=== PATIENT | male | born 1950 | race Caucasian/White ===

== ENCOUNTER 2017-08-06 07:57 | Emergency (ER) | payer OTHER, MEDICARE ==
[~2017-08-06] VITALS: Ht 190.5 cm; Wt 137.5 kg
[~2017-08-06 07:57] MED LIST: AMARYL4 MG PO; ASPIRIN81 M2 PO; COUMADIN5 MG PO; COZAAR100 MG PO; FLOMAX0.4 MG PO; GLUCOPHAGE1000 MG PO; HYDROCHLOROTHIA25 MG PO; LANTUS 3 M100 UNITS1 SC; LOVENOX120 MG/0.8 SC; NOVOLOG 10100 UNITS/ SC; PERCOCET 5/31 TABLET PO; SIMVASTATIN40 MG PO; VICTOZA 2-0.6 MG/0.1 SC; ZOFRAN ODT4 MG PO; ZOFRAN ODT8 MG PO
[2017-08-06 08:22] LABS: EOSINOPHIL (%) 0.3 % (0-5); EOSINOPHIL COUNT 0.1 K/uL (0-0.3); HEMATOCRIT 40.3 % (38.0-50.0); IMMATURE GRANULOCYTE (%) 0.3 % (0.0-0.7); IMMATURE GRANULOCYTE COUNT 0.1 K/uL; INSTRUMENT ABS NEUTROPHIL CT 12.4 K/uL; LYMPHOCYTE COUNT 2.1 K/uL (1.0-2.8); MCH 28.6 PG (29.0-34.0); MCHC 33.3 G/DL (30.0-36.0); MCV 85.9 FL (86-99); MEAN PLAT.VOLUME 10.5 uM^3 (9.0-12.4); MONOCYTE (%) 4.9 % (3-12); MONOCYTE COUNT 0.8 K/uL (0-0.8); NEUTROPHIL (%) 80.4 % (45-76); NEUTROPHIL COUNT 12.4 K/uL (1.8-6.4); PLATELET COUNT 301 K/uL (156-360); RBC DIS.WIDTH-CV 13.3 % (11.8-14.6); RBC DIS.WIDTH-SD 41.3 % (39-53); RED BLOOD COUNT 4.69 M/uL (4.00-5.50); WHITE BLOOD COUNT 15.5 K/uL (4.1-10.2)
[2017-08-06 08:32] LABS: CHLORIDE 103 mEq/L (99-109); POTASSIUM 5.1 mEq/L (3.7-5.4); SODIUM 135 mEq/L (136-147)
[2017-08-06 08:34] LABS: GLUCOSE 343 mg/dL (70-99)
[2017-08-06 08:35] LABS: ANION GAP 13 MEQ/L (2-14)
[2017-08-06 08:38] LABS: GFR ESTIMATE (CALCULATED) 58 mL/min/
[2017-08-06 08:39] LABS: UREA NITROGEN (BUN) 25 mg/dL (9-23)
[2017-08-06] MEDS ORDERED: METOPROLOL TART50 MG PO (08:49)
[2017-08-06] MEDS ORDERED: ATORVASTATIN CA40 MG PO (08:50)
[2017-08-06 10:06] LABS: ADD MIUA? YES; BILIRUBIN NEGATIVE; BLOOD MODERATE; COLOR YELLOW ((YELLOW)); GLUCOSE (STRIP) >=500; KETONES 5; LEUKOCYTES NEGATIVE; NITRITE NEGATIVE; PROTEIN (STRIP) 30; SPECIFIC GRAVITY 1.024 (1.000-1.030); UROBILINOGEN 0.2 MG/DL (0.2-1.0)
[2017-08-06 10:27] LABS: BACTERIA 3+ /HPF; EPITHELIAL CELLS RARE /HPF; HYALINE CASTS 0-5 /LPF; MUCUS TRACE /LPF; RED BLOOD CELLS TNTC /HPF (0-5); WHITE BLOOD CELLS 0-5 /HPF (0-5)
[2017-08-06] MEDS ORDERED: PERCOCET 5/31 TABLET PO (10:46)
[2017-08-06] MEDS ORDERED: FLOMAX0.4 MG PO (10:46)
[2017-08-06] MEDS ORDERED: ZOFRAN4 MG PO (10:46)
[2017-08-06 11:09] VITALS: BP 109/58
== END 2017-08-06 11:14 | disposition home or self-care (01) ==
LOC: EME 07:57
PROVIDERS: Emergency Medicine
DX: N20.2 Calculus of kidney with calculus of ureter (principal); E11.9 Type 2 diabetes mellitus without complications; Z79.4 Long term (current) use of insulin; Z87.442 Personal history of urinary calculi; Z88.1 Allergy status to other antibiotic agents; Z91.030 Bee allergy status
CPT/HCPCS: 74176; 80048; 81003; 85025; 99281; 99285; J1885; J2270; J2405; J7030

== ENCOUNTER 2017-12-08 04:38 | Observation (INO) | payer OTHER, MEDICARE ==
[~2017-12-08] VITALS: Ht 190.5 cm; Wt 137.8 kg
[~2017-12-08 04:38] MED LIST changes: +ATORVASTATIN CA40 MG PO; +METOPROLOL TART50 MG PO; +ZOFRAN4 MG PO
[2017-12-08 05:43] LABS: HEMATOCRIT 39.5 % (38.0-50.0); HEMOGLOBIN 12.9 G/DL (12.5-16.6); MCH 28.7 PG (29.0-34.0); MCHC 32.7 G/DL (30.0-36.0); MCV 87.8 FL (86-99); PLATELET COUNT 285 K/uL (156-360); RBC DIS.WIDTH-CV 12.8 % (11.8-14.6); RBC DIS.WIDTH-SD 40.9 % (39-53); WHITE BLOOD COUNT 17.1 K/uL (4.1-10.2)
[2017-12-08 05:48] LABS: APPEARANCE SL.HAZY ((CLEAR)); BILIRUBIN NEGATIVE; BLOOD LARGE; COLOR YELLOW ((YELLOW)); GLUCOSE (STRIP) 150; KETONES NEGATIVE; LEUKOCYTES NEGATIVE; NITRITE NEGATIVE; PROTEIN (STRIP) 100; SPECIFIC GRAVITY 1.017 (1.000-1.030); UROBILINOGEN 0.2 MG/DL (0.2-1.0)
[2017-12-08 05:52] LABS: BACTERIA NONE SEEN /HPF; EPITHELIAL CELLS NONE SEEN /HPF; HYALINE CASTS 0-5 /LPF; MUCUS TRACE /LPF; RED BLOOD CELLS TNTC /HPF (0-5); UCUL ADDED? YES; WHITE BLOOD CELLS 0-5 /HPF (0-5)
[2017-12-08 05:56] LABS: ALBUMIN 3.8 g/dL (3.2-4.8); CHLORIDE 105 mEq/L (99-109); POTASSIUM 4.1 mEq/L (3.7-5.4); SODIUM 136 mEq/L (136-147)
[2017-12-08 05:58] LABS: GLUCOSE 289 mg/dL (70-99); TOTAL PROTEIN 7.3 g/dL (6.4-8.3)
[2017-12-08 06:00] LABS: TOTAL BILIRUBIN 0.6 mg/dL (0.0-1.0)
[2017-12-08 06:02] LABS: ALKALINE PHOSPHATASE 171 IU/L (3-129); CREATININE 1.1 mg/dL (0.6-1.3); GFR ESTIMATE (CALCULATED) > 59 mL/min/ (58.99-99999)
[2017-12-08 06:03] LABS: AST (GOT) 17 IU/L (2-34); UREA NITROGEN (BUN) 17 mg/dL (9-23)
[2017-12-08 06:04] LABS: DIRECT BILIRUBIN 0.3 mg/dL (0.0-0.3)
[2017-12-08 06:05] LABS: ALT (GPT) 17 IU/L (3-49); LIPASE 15 U/L (1.0-51.0)
[2017-12-08 10:10] VITALS: BP 104/66
[2017-12-08] MEDS ORDERED: METOPROLOL TART50 MG PO (10:28)
[2017-12-08] MEDS ORDERED: INSULIN PUMP MC (10:29)
[2017-12-08 15:48] LABS: HEMOGLOBIN A1c (GLYCOHEMOGLOB) 9.4 % (Below 5.7)
[2017-12-08 17:31] VITALS: BP 157/70
[2017-12-08 23:54] VITALS: BP 115/59
[2017-12-09 06:55] LABS: HEMATOCRIT 32.6 % (38.0-50.0); MCH 29.2 PG (29.0-34.0); MCHC 33.1 G/DL (30.0-36.0); MCV 88.1 FL (86-99); PLATELET COUNT 227 K/uL (156-360); RBC DIS.WIDTH-SD 41.4 % (39-53); WHITE BLOOD COUNT 13.1 K/uL (4.1-10.2)
[2017-12-09 06:56] LABS: HEMOGLOBIN 10.8 G/DL (12.5-16.6)
[2017-12-09 07:30] VITALS: BP 112/57
[2017-12-09] MEDS ORDERED: TAMSULOSIN HCL0.4 MG PO (08:06)
[2017-12-09] MEDS ORDERED: CEFDINIR300 MG PO (08:06)
[2017-12-09] MEDS ORDERED: ENDOCET 5-3251 EACH PO (08:06)
== END 2017-12-09 11:00 | disposition home or self-care (01) ==
LOC: EME 04:38 → 2EAST 08:32 → EDOF 08:32 → 2EAST 08:32 → ENRESERV 08:32 → 2EAST 09:52
PROVIDERS: Internal Medicine
DX: N13.6 Pyonephrosis (principal); R05 Cough; Z87.442 Personal history of urinary calculi; E11.65 Type 2 diabetes mellitus with hyperglycemia; I10 Essential (primary) hypertension; Z96.41 Presence of insulin pump (external) (internal); Z88.1 Allergy status to other antibiotic agents; Z91.030 Bee allergy status; Z79.82 Long term (current) use of aspirin
CPT/HCPCS: 71046; 74019; 74176; 74420; 80048; 80076; 81003; 82948; 83036; 83605; 83690; 85027; 87040; 87086; 87502; 93005; 99281; 99285; C1758; C2625; G0378; J0330; J0696; J1885; J2270; J2405; J3010; J7030; J7120

== ENCOUNTER 2017-12-19 21:32 | Inpatient (IN) | payer OTHER, MEDICARE ==
[~2017-12-19] VITALS: Ht 193 cm; Wt 136.6 kg
[~2017-12-19 21:32] MED LIST changes: +CEFDINIR300 MG PO; +ENDOCET 5-3251 EACH PO; +INSULIN PUMP MC; +TAMSULOSIN HCL0.4 MG PO
[2017-12-19 22:37] LABS: HEMATOCRIT 39.2 % (38.0-50.0); MCH 29.3 PG (29.0-34.0); MCHC 33.7 G/DL (30.0-36.0); MCV 87.1 FL (86-99); RBC DIS.WIDTH-SD 41.1 % (39-53); WHITE BLOOD COUNT 18.3 K/uL (4.1-10.2)
[2017-12-19 22:59] LABS: ALBUMIN 4.1 g/dL (3.2-4.8)
[2017-12-19 23:00] LABS: CHLORIDE 98 mEq/L (99-109); SODIUM 129 mEq/L (136-147)
[2017-12-19 23:02] LABS: TOTAL PROTEIN 7.3 g/dL (6.4-8.3)
[2017-12-19 23:04] LABS: TOTAL BILIRUBIN 0.9 mg/dL (0.0-1.0)
[2017-12-19 23:05] LABS: ALKALINE PHOSPHATASE 150 IU/L (3-129)
[2017-12-19 23:06] LABS: CREATININE 1.6 mg/dL (0.6-1.3); GFR ESTIMATE (CALCULATED) 46 mL/min/ (58.99-99999); HEMOGLOBIN 13.2 G/DL (12.5-16.6); PLATELET COUNT 351 K/uL (156-360)
[2017-12-19 23:07] LABS: AST (GOT) 22 IU/L (2-34); UREA NITROGEN (BUN) 35 mg/dL (9-23)
[2017-12-19 23:08] LABS: ALT (GPT) 22 IU/L (3-49)
[2017-12-19 23:09] LABS: LIPASE 24 U/L (1.0-51.0)
[2017-12-19 23:17] LABS: APPEARANCE CLEAR ((CLEAR)); BILIRUBIN NEGATIVE; BLOOD MODERATE; COLOR STRAW ((YELLOW)); GLUCOSE (STRIP) >=500; KETONES 20; LEUKOCYTES NEGATIVE; NITRITE NEGATIVE; PROTEIN (STRIP) 30; SPECIFIC GRAVITY 1.024 (1.000-1.030); UROBILINOGEN 0.2 MG/DL (0.2-1.0)
[2017-12-19 23:19] LABS: GLUCOSE 498 mg/dL (70-99); POTASSIUM 6.9 mEq/L (3.7-5.4)
[2017-12-19 23:50] LABS: BACTERIA RARE /HPF; EPITHELIAL CELLS NONE SEEN /HPF; MUCUS TRACE /LPF; WHITE BLOOD CELLS 0-5 /HPF (0-5)
[2017-12-20 02:33] LABS: CHLORIDE 101 mEq/L (99-109); SODIUM 131 mEq/L (136-147)
[2017-12-20 02:37] LABS: GLUCOSE 464 mg/dL (70-99); POTASSIUM 6.4 mEq/L (3.7-5.4)
[2017-12-20 02:39] LABS: CREATININE 1.8 mg/dL (0.6-1.3); GFR ESTIMATE (CALCULATED) 40 mL/min/ (58.99-99999); UREA NITROGEN (BUN) 35 mg/dL (9-23)
[2017-12-20 05:23] LABS: CHLORIDE 101 mEq/L (99-109); SODIUM 129 mEq/L (136-147)
[2017-12-20 05:25] LABS: GLUCOSE 396 mg/dL (70-99)
[2017-12-20 05:29] LABS: CREATININE 1.6 mg/dL (0.6-1.3); GFR ESTIMATE (CALCULATED) 46 mL/min/ (58.99-99999); POTASSIUM 6.3 mEq/L (3.7-5.4)
[2017-12-20 05:30] LABS: UREA NITROGEN (BUN) 36 mg/dL (9-23)
[2017-12-20 06:33] VITALS: BP 125/65
[2017-12-20 10:11] LABS: BASE EXCESS -0.7 mEq/L (-3 to +3); BICARBONATE 24.9 mEq/L (22-26); CARBOXY HGB 2.1 % (0-5); COMMENTS - BLOOD GASES A+C+; FI02 21 %; METHEMOGLOBIN 1.5 % (0-1.5); PCO2 44 mm Hg (35-45); PO2 69 mm Hg (80-100); SITE RR; pH 7.36 (7.35-7.45)
[2017-12-20 10:56] LABS: HEMOGLOBIN A1c (GLYCOHEMOGLOB) 9.3 % (Below 5.7)
[2017-12-20 11:03] VITALS: BP 105/68
[2017-12-20 11:48] LABS: CHLORIDE 104 MEQ/L (99-109); CREATININE 1.2 MG/DL (0.6-1.3); GFR ESTIMATE (CALCULATED) > 59 mL/min/ (58.99-99999); GLUCOSE 309 mg/dL (70-99); SODIUM 133 MEQ/L (136-147); UREA NITROGEN (BUN) 30 mg/dL (9-23)
[2017-12-20 11:49] LABS: POTASSIUM 4.7 MEQ/L (3.7-5.4)
[2017-12-20] MEDS ORDERED: INSULIN PUMP SC (15:56)
[2017-12-20 16:29] VITALS: BP 120/57
[2017-12-20 18:55] VITALS: BP 128/64
[2017-12-20 23:31] VITALS: BP 170/72
[2017-12-21 06:37] LABS: ALBUMIN 3.1 G/DL (3.2-4.8); CHLORIDE 107 MEQ/L (99-109); CREATININE 1.2 MG/DL (0.6-1.3); GFR ESTIMATE (CALCULATED) > 59 mL/min/ (58.99-99999); GLUCOSE 220 mg/dL (70-99); MAGNESIUM 1.4 mg/dl (1.3-2.7); PHOSPHORUS 3.7 mg/dL (2.5-4.9); POTASSIUM 4.9 MEQ/L (3.7-5.4); SODIUM 136 MEQ/L (136-147); UREA NITROGEN (BUN) 26 mg/dL (9-23)
[2017-12-21 06:51] LABS: BASOPHIL (%) 0.3 % (0-1); EOSINOPHIL (%) 1.3 % (0-5); EOSINOPHIL COUNT 0.2 K/uL (0-0.3); HEMATOCRIT 33.2 % (38.0-50.0); IMMATURE GRANULOCYTE (%) 0.2 % (0.0-0.7); LYMPHOCYTE (%) 22.3 % (15-42); LYMPHOCYTE COUNT 2.8 K/uL (1.0-2.8); MCHC 31.9 G/DL (30.0-36.0); MCV 87.8 FL (86-99); MONOCYTE COUNT 0.8 K/uL (0-0.8); NEUTROPHIL (%) 69.9 % (45-76); NEUTROPHIL COUNT 8.9 K/uL (1.8-6.4); PLATELET COUNT 294 K/uL (156-360); RBC DIS.WIDTH-SD 42.2 % (39-53); RED BLOOD COUNT 3.78 M/uL (4.00-5.50); WHITE BLOOD COUNT 12.7 K/uL (4.1-10.2)
[2017-12-21 06:54] LABS: HEMOGLOBIN 10.6 G/DL (12.5-16.6)
[2017-12-21 07:49] VITALS: BP 113/57
[2017-12-21] MEDS ORDERED: CEFDINIR300 MG PO (14:07)
== END 2017-12-21 15:41 | disposition home or self-care (01) | DRG 698 ==
LOC: EME 21:32 → EDOF 12-20 05:06 → 5EAST 12-20 05:06 → EDOF 12-20 05:06 → ENRESERV 12-20 05:09 → 5EAST 12-20 06:20
PROVIDERS: Hospitalist; Internal Medicine Nephrology; Physician Assistant
DX: N13.9 Obstructive and reflux uropathy, unspecified (principal); N17.9 Acute kidney failure, unspecified; E87.5 Hyperkalemia; I12.9 Hypertensive chronic kidney disease with stage 1 through stage 4 chronic kidney disease, or unspecified chronic kidney disease; N18.2 Chronic kidney disease, stage 2 (mild); E11.10 Type 2 diabetes mellitus with ketoacidosis without coma; Z96.41 Presence of insulin pump (external) (internal); E78.5 Hyperlipidemia, unspecified; N13.2 Hydronephrosis with renal and ureteral calculous obstruction; N23 Unspecified renal colic; Z87.442 Personal history of urinary calculi; Z79.4 Long term (current) use of insulin; D72.829 Elevated white blood cell count, unspecified; E87.1 Hypo-osmolality and hyponatremia
CPT/HCPCS: 36600; 74176; 74420; 80048; 80048 91; 80053; 80069; 81003; 82010; 82570; 82803; 82948; 83036; 83605; 83690; 83735; 84132 91; 84156; 85025; 85027; 87040; 93005; 93880; 94640; 99281; 99285; C2625; J0610; J0690; J1170; J1815; J1885; J2270; J2405; J3010; J7030; J7050

== ENCOUNTER 2018-01-17 17:13 | Inpatient (IN) | payer OTHER, MEDICARE ==
[~2018-01-17] VITALS: Ht 190.5 cm; Wt 139.8 kg
[~2018-01-17 17:13] MED LIST changes: +INSULIN PUMP SC
[2018-01-17 18:42] LABS: BASOPHIL (%) 0.2 % (0-1); EOSINOPHIL (%) 0.1 % (0-5); HEMATOCRIT 34.4 % (38.0-50.0); HEMOGLOBIN 11.6 G/DL (12.5-16.6); IMMATURE GRANULOCYTE (%) 0.5 % (0.0-0.7); LYMPHOCYTE (%) 3.9 % (15-42); LYMPHOCYTE COUNT 0.8 K/uL (1.0-2.8); MCH 28.8 PG (29.0-34.0); MCHC 33.7 G/DL (30.0-36.0); MCV 85.4 FL (86-99); MONOCYTE (%) 6.2 % (3-12); MONOCYTE COUNT 1.2 K/uL (0-0.8); NEUTROPHIL (%) 89.1 % (45-76); PLATELET COUNT 322 K/uL (156-360); RBC DIS.WIDTH-CV 12.4 % (11.8-14.6); RBC DIS.WIDTH-SD 38.4 % (39-53); RED BLOOD COUNT 4.03 M/uL (4.00-5.50); WHITE BLOOD COUNT 19.1 K/uL (4.1-10.2)
[2018-01-17 18:51] LABS: ALBUMIN 3.4 g/dL (3.2-4.8); CHLORIDE 100 mEq/L (99-109)
[2018-01-17 18:52] LABS: POTASSIUM 4.4 mEq/L (3.7-5.4); SODIUM 131 mEq/L (136-147)
[2018-01-17 18:54] LABS: GLUCOSE 357 mg/dL (70-99); TOTAL PROTEIN 7.1 g/dL (6.4-8.3)
[2018-01-17 18:56] LABS: TOTAL BILIRUBIN 0.7 mg/dL (0.0-1.0)
[2018-01-17 18:57] LABS: ALKALINE PHOSPHATASE 124 IU/L (3-129); CREATININE 1.1 mg/dL (0.6-1.3); GFR ESTIMATE (CALCULATED) > 59 mL/min/ (58.99-99999)
[2018-01-17 18:59] LABS: AST (GOT) 16 IU/L (2-34); UREA NITROGEN (BUN) 15 mg/dL (9-23)
[2018-01-17 19:00] LABS: ALT (GPT) 12 IU/L (3-49)
[2018-01-17 19:01] LABS: LIPASE 5 U/L (1.0-51.0)
[2018-01-17 19:04] LABS: TROP-I INTERPRETATION NEGATIVE; TROPONIN-I 0.04 ng/mL (0.0-0.30)
[2018-01-17 20:02] LABS: APPEARANCE CLOUDY ((CLEAR)); BILIRUBIN NEGATIVE; BLOOD SMALL; COLOR YELLOW ((YELLOW)); GLUCOSE (STRIP) >=500; KETONES 5; LEUKOCYTES NEGATIVE; NITRITE NEGATIVE; PROTEIN (STRIP) 100; SPECIFIC GRAVITY 1.027 (1.000-1.030); UROBILINOGEN 0.2 MG/DL (0.2-1.0)
[2018-01-17 20:23] LABS: BACTERIA NONE SEEN /HPF; EPITHELIAL CELLS RARE /HPF; MUCUS TRACE /LPF; RED BLOOD CELLS 0-5 /HPF (0-5); UCUL ADDED? NO; WHITE BLOOD CELLS 0-5 /HPF (0-5)
[2018-01-17 22:34] VITALS: BP 121/60
[2018-01-17 23:30] VITALS: BP 118/67
[2018-01-18 04:26] VITALS: BP 129/60
[2018-01-18 07:13] LABS: HEMATOCRIT 31.5 % (38.0-50.0); HEMOGLOBIN 10.5 G/DL (12.5-16.6); MCHC 33.3 G/DL (30.0-36.0); PLATELET COUNT 314 K/uL (156-360); RBC DIS.WIDTH-CV 12.5 % (11.8-14.6); RBC DIS.WIDTH-SD 40.1 % (39-53); RED BLOOD COUNT 3.62 M/uL (4.00-5.50); WHITE BLOOD COUNT 19.5 K/uL (4.1-10.2)
[2018-01-18 07:23] VITALS: BP 128/63
[2018-01-18 07:36] LABS: CHLORIDE 102 MEQ/L (99-109); GFR ESTIMATE (CALCULATED) > 59 mL/min/ (58.99-99999); GLUCOSE 204 mg/dL (70-99); POTASSIUM 4.3 MEQ/L (3.7-5.4); SODIUM 133 MEQ/L (136-147); UREA NITROGEN (BUN) 12 mg/dL (9-23)
[2018-01-18 09:46] LABS: ALBUMIN 2.9 G/DL (3.2-4.8); ALKALINE PHOSPHATASE 102 IU/L (3-129); ALT (GPT) 8 IU/L (3-49); AST (GOT) 12 IU/L (2-34); TOTAL BILIRUBIN 0.8 MG/DL (0.0-1.0); TOTAL PROTEIN 5.9 G/DL (6.4-8.3)
[2018-01-18 11:15] VITALS: BP 113/89
[2018-01-18 15:49] VITALS: BP 139/62
[2018-01-18 19:05] VITALS: BP 138/62
[2018-01-18 22:46] VITALS: BP 108/56
[2018-01-19 03:45] VITALS: BP 124/60
[2018-01-19 05:49] LABS: BASOPHIL (%) 0.2 % (0-1); EOSINOPHIL (%) 1.9 % (0-5); EOSINOPHIL COUNT 0.4 K/uL (0-0.3); HEMATOCRIT 30.2 % (38.0-50.0); IMM.RETIC FRACTION 11.1 % (3-19); IMMATURE GRANULOCYTE (%) 0.5 % (0.0-0.7); LYMPHOCYTE COUNT 1.5 K/uL (1.0-2.8); MCHC 33.1 G/DL (30.0-36.0); MCV 87.5 FL (86-99); MONOCYTE (%) 8.4 % (3-12); MONOCYTE COUNT 1.6 K/uL (0-0.8); NEUTROPHIL COUNT 15.5 K/uL (1.8-6.4); PLATELET COUNT 304 K/uL (156-360); RBC DIS.WIDTH-CV 12.8 % (11.8-14.6); RED BLOOD COUNT 3.45 M/uL (4.00-5.50); WHITE BLOOD COUNT 19.2 K/uL (4.1-10.2)
[2018-01-19 07:46] LABS: C-REACTIVE PROTEIN 149.3 MG/L (0-10); CHLORIDE 105 MEQ/L (99-109); GFR ESTIMATE (CALCULATED) 27 mL/min/ (58.99-99999); GLUCOSE 199 mg/dL (70-99); IRON 13 MCG/DL (35-150); POTASSIUM 4.8 MEQ/L (3.7-5.4); SODIUM 136 MEQ/L (136-147); VANCOMYCIN, TROUGH 31.3 MCG/ML (10-20)
[2018-01-19 07:47] LABS: CREATININE 2.5 MG/DL (0.6-1.3); UREA NITROGEN (BUN) 21 mg/dL (9-23)
[2018-01-19 07:49] LABS: ERTH.SED.RATE 44 MM/HR (0-20)
[2018-01-19 08:04] VITALS: BP 136/61
[2018-01-19 10:28] LABS: FOLIC ACID (FOLATE) 19.9 NG/ML (5.0-22.0)
[2018-01-19 10:53] LABS: FERRITIN 282 NG/ML (22-322)
[2018-01-19 12:59] LABS: HEMOGLOBIN A1c (GLYCOHEMOGLOB) 8.7 % (Below 5.7)
[2018-01-19 16:32] VITALS: BP 136/63
[2018-01-19 17:20] LABS: APPEARANCE CLEAR ((CLEAR)); BILIRUBIN NEGATIVE; BLOOD SMALL; COLOR YELLOW ((YELLOW)); GLUCOSE (STRIP) 50; KETONES NEGATIVE; LEUKOCYTES NEGATIVE; NITRITE NEGATIVE; PROTEIN (STRIP) 30; SPECIFIC GRAVITY 1.012 (1.000-1.030); UROBILINOGEN 0.2 MG/DL (0.2-1.0)
[2018-01-19 17:58] LABS: UR CREATININE CONCENTRATION 106.7 MG/DL
[2018-01-19 18:13] LABS: BACTERIA NONE SEEN /HPF; EPITHELIAL CELLS RARE /HPF; MUCUS NONE SEEN /LPF; RED BLOOD CELLS NONE SEEN /HPF (0-5); UCUL ADDED? NO; WHITE BLOOD CELLS RARE /HPF (0-5)
[2018-01-20 00:03] VITALS: BP 140/65
[2018-01-20 06:13] LABS: BASOPHIL (%) 0.2 % (0-1); EOSINOPHIL (%) 1.3 % (0-5); EOSINOPHIL COUNT 0.2 K/uL (0-0.3); HEMOGLOBIN 9.5 G/DL (12.5-16.6); IMMATURE GRANULOCYTE (%) 0.6 % (0.0-0.7); LYMPHOCYTE COUNT 1.7 K/uL (1.0-2.8); MCH 28.4 PG (29.0-34.0); MCHC 31.7 G/DL (30.0-36.0); MCV 89.6 FL (86-99); MONOCYTE (%) 6.9 % (3-12); MONOCYTE COUNT 1.3 K/uL (0-0.8); NEUTROPHIL COUNT 15.7 K/uL (1.8-6.4); PLATELET COUNT 343 K/uL (156-360); RBC DIS.WIDTH-CV 12.7 % (11.8-14.6); RBC DIS.WIDTH-SD 41.9 % (39-53); RED BLOOD COUNT 3.35 M/uL (4.00-5.50); WHITE BLOOD COUNT 19.2 K/uL (4.1-10.2)
[2018-01-20 07:58] VITALS: BP 144/65
[2018-01-20 11:03] LABS: ALBUMIN 2.6 G/DL (3.2-4.8); CHLORIDE 108 MEQ/L (99-109); IRON 13 MCG/DL (35-150); POTASSIUM 4.5 MEQ/L (3.7-5.4); SODIUM 136 MEQ/L (136-147); TRANSFERRIN (TIBC) 132.1 mg/dL (215-380); TRANSFERRIN SATUR. 10 % (20-55); UREA NITROGEN (BUN) 25 mg/dL (9-23); URIC ACID 4.3 mg/dL (3.1-9.2); VANCOMYCIN, TROUGH 34.6 MCG/ML (10-20)
[2018-01-20 11:04] LABS: CREATININE 3.4 MG/DL (0.6-1.3); GFR ESTIMATE (CALCULATED) 19 mL/min/ (58.99-99999); GLUCOSE 105 mg/dL (70-99)
[2018-01-20 15:36] VITALS: BP 126/81
[2018-01-20 23:30] VITALS: BP 121/63
[2018-01-21 06:13] LABS: BASOPHIL (%) 0.2 % (0-1); EOSINOPHIL (%) 2.3 % (0-5); EOSINOPHIL COUNT 0.4 K/uL (0-0.3); HEMATOCRIT 30.7 % (38.0-50.0); IMMATURE GRANULOCYTE (%) 0.5 % (0.0-0.7); LYMPHOCYTE (%) 9.7 % (15-42); LYMPHOCYTE COUNT 1.6 K/uL (1.0-2.8); MCHC 32.6 G/DL (30.0-36.0); MONOCYTE (%) 7.4 % (3-12); MONOCYTE COUNT 1.2 K/uL (0-0.8); NEUTROPHIL (%) 79.9 % (45-76); NEUTROPHIL COUNT 13.2 K/uL (1.8-6.4); PLATELET COUNT 369 K/uL (156-360); RBC DIS.WIDTH-CV 12.7 % (11.8-14.6); RED BLOOD COUNT 3.57 M/uL (4.00-5.50); WHITE BLOOD COUNT 16.5 K/uL (4.1-10.2)
[2018-01-21 06:41] LABS: ALBUMIN 2.5 G/DL (3.2-4.8); CHLORIDE 113 MEQ/L (99-109); CREATININE 3.2 MG/DL (0.6-1.3); GFR ESTIMATE (CALCULATED) 21 mL/min/ (58.99-99999); GLUCOSE 86 mg/dL (70-99); PHOSPHORUS 3.7 mg/dL (2.5-4.9); POTASSIUM 4.6 MEQ/L (3.7-5.4); SODIUM 140 MEQ/L (136-147); UREA NITROGEN (BUN) 26 mg/dL (9-23)
[2018-01-21 08:34] VITALS: BP 136/69
[2018-01-21 15:45] VITALS: BP 146/66
[2018-01-22 00:22] VITALS: BP 137/63
[2018-01-22 03:46] VITALS: BP 145/72
[2018-01-22 07:25] LABS: ALBUMIN 2.6 G/DL (3.2-4.8); CHLORIDE 112 MEQ/L (99-109); CREATININE 3.3 MG/DL (0.6-1.3); GFR ESTIMATE (CALCULATED) 20 mL/min/ (58.99-99999); GLUCOSE 70 mg/dL (70-99); PHOSPHORUS 3.3 mg/dL (2.5-4.9); POTASSIUM 4.3 MEQ/L (3.7-5.4); SODIUM 141 MEQ/L (136-147); UREA NITROGEN (BUN) 25 mg/dL (9-23)
[2018-01-22 07:41] VITALS: BP 142/63
[2018-01-22 16:26] VITALS: BP 167/81
[2018-01-22 23:36] VITALS: BP 168/77
[2018-01-23 06:45] LABS: BASOPHIL (%) 0.6 % (0-1); BASOPHIL COUNT 0.1 K/uL (0-0.1); EOSINOPHIL (%) 4.8 % (0-5); EOSINOPHIL COUNT 0.6 K/uL (0-0.3); HEMATOCRIT 29.7 % (38.0-50.0); HEMOGLOBIN 9.4 G/DL (12.5-16.6); IMMATURE GRANULOCYTE (%) 0.8 % (0.0-0.7); LYMPHOCYTE (%) 11.1 % (15-42); LYMPHOCYTE COUNT 1.4 K/uL (1.0-2.8); MCH 27.6 PG (29.0-34.0); MCHC 31.6 G/DL (30.0-36.0); MCV 87.4 FL (86-99); MONOCYTE (%) 9.2 % (3-12); MONOCYTE COUNT 1.1 K/uL (0-0.8); NEUTROPHIL (%) 73.5 % (45-76); NEUTROPHIL COUNT 9.1 K/uL (1.8-6.4); PLATELET COUNT 437 K/uL (156-360); RBC DIS.WIDTH-SD 41.4 % (39-53); WHITE BLOOD COUNT 12.3 K/uL (4.1-10.2)
[2018-01-23 07:21] LABS: ALBUMIN 2.3 G/DL (3.2-4.8); CHLORIDE 113 MEQ/L (99-109); CREATININE 3.1 MG/DL (0.6-1.3); GFR ESTIMATE (CALCULATED) 21 mL/min/ (58.99-99999); GLUCOSE 89 mg/dL (70-99); PHOSPHORUS 3.7 mg/dL (2.5-4.9); POTASSIUM 4.7 MEQ/L (3.7-5.4); SODIUM 142 MEQ/L (136-147); UREA NITROGEN (BUN) 22 mg/dL (9-23)
[2018-01-23 07:43] VITALS: BP 160/69
[2018-01-23 11:47] VITALS: BP 155/67
[2018-01-23 15:46] VITALS: BP 151/69
[2018-01-24 00:34] VITALS: BP 164/77
[2018-01-24 07:43] LABS: BASOPHIL (%) 0.5 % (0-1); BASOPHIL COUNT 0.1 K/uL (0-0.1); EOSINOPHIL COUNT 0.5 K/uL (0-0.3); HEMATOCRIT 31.7 % (38.0-50.0); IMMATURE GRANULOCYTE (%) 1.5 % (0.0-0.7); LYMPHOCYTE (%) 13.5 % (15-42); LYMPHOCYTE COUNT 1.8 K/uL (1.0-2.8); MCH 27.6 PG (29.0-34.0); MCHC 31.5 G/DL (30.0-36.0); MCV 87.6 FL (86-99); MONOCYTE (%) 8.4 % (3-12); MONOCYTE COUNT 1.1 K/uL (0-0.8); NEUTROPHIL (%) 72.1 % (45-76); NEUTROPHIL COUNT 9.5 K/uL (1.8-6.4); PLATELET COUNT 481 K/uL (156-360); RBC DIS.WIDTH-CV 13.1 % (11.8-14.6); RBC DIS.WIDTH-SD 42.4 % (39-53); RED BLOOD COUNT 3.62 M/uL (4.00-5.50); WHITE BLOOD COUNT 13.2 K/uL (4.1-10.2)
[2018-01-24 07:50] VITALS: BP 173/78
[2018-01-24 08:12] LABS: ALBUMIN 2.8 G/DL (3.2-4.8); CHLORIDE 113 MEQ/L (99-109); CREATININE 3.1 MG/DL (0.6-1.3); GFR ESTIMATE (CALCULATED) 21 mL/min/ (58.99-99999); GLUCOSE 96 mg/dL (70-99); PHOSPHORUS 3.7 mg/dL (2.5-4.9); POTASSIUM 4.8 MEQ/L (3.7-5.4); SODIUM 144 MEQ/L (136-147); UREA NITROGEN (BUN) 23 mg/dL (9-23)
[2018-01-24] MEDS ORDERED: CEFTRIAXONE2 G1 IV (13:52)
[2018-01-24] MEDS ORDERED: CILOSTAZOL100 MG PO (13:53)
[2018-01-24] MEDS ORDERED: METOPROLOL TART50 MG PO (13:54)
[2018-01-24] MEDS ORDERED: PANTOPRAZOLE SO40 MG PO (13:55)
[2018-01-24] MEDS ORDERED: LASIX40 MG PO (14:01)
[2018-01-24 15:30] VITALS: BP 172/80
== END 2018-01-24 16:08 | disposition home or self-care (01) | DRG 853 ==
LOC: EME 17:13 → 2EASTP 20:04 → EDOF 20:04 → 2EASTP 20:04 → ENRESERV 20:24 → 2EASTP 21:28 → ENPENDDIS 01-24 → 2EASTP 01-24 16:08
PROVIDERS: Emergency Medicine; Hospitalist; Internal Medicine; Internal Medicine Nephrology
PROC: 0JBR0ZZ Excision of Left Foot Subcutaneous Tissue and Fascia, Open Approach (ICD-10-PCS; principal; 2018-01-18)
PROC: 0QBP0ZZ Excision of Left Metatarsal, Open Approach (ICD-10-PCS; 2018-01-20)
PROC: 0J9R0ZX Drainage of Left Foot Subcutaneous Tissue and Fascia, Open Approach, Diagnostic (ICD-10-PCS; 2018-01-22)
PROC: 02HV33Z Insertion of Infusion Device into Superior Vena Cava, Percutaneous Approach (ICD-10-PCS; 2018-01-23)
PROC: B5181ZA Fluoroscopy of Superior Vena Cava using Low Osmolar Contrast, Guidance (ICD-10-PCS; 2018-01-23)
PROC: B548ZZA Ultrasonography of Superior Vena Cava, Guidance (ICD-10-PCS; 2018-01-23)
DX: A41.9 Sepsis, unspecified organism (principal); N17.0 Acute kidney failure with tubular necrosis; L02.612 Cutaneous abscess of left foot; L03.116 Cellulitis of left lower limb; M86.9 Osteomyelitis, unspecified; E87.1 Hypo-osmolality and hyponatremia; E87.3 Alkalosis; L97.522 Non-pressure chronic ulcer of other part of left foot with fat layer exposed; D50.9 Iron deficiency anemia, unspecified; D63.1 Anemia in chronic kidney disease; E11.22 Type 2 diabetes mellitus with diabetic chronic kidney disease; E11.42 Type 2 diabetes mellitus with diabetic polyneuropathy; E11.43 Type 2 diabetes mellitus with diabetic autonomic (poly)neuropathy; E11.51 Type 2 diabetes mellitus with diabetic peripheral angiopathy without gangrene; E11.621 Type 2 diabetes mellitus with foot ulcer; E11.628 Type 2 diabetes mellitus with other skin complications; E11.65 Type 2 diabetes mellitus with hyperglycemia; E11.69 Type 2 diabetes mellitus with other specified complication; E53.8 Deficiency of other specified B group vitamins; E78.5 Hyperlipidemia, unspecified; K21.9 Gastro-esophageal reflux disease without esophagitis; Z96.41 Presence of insulin pump (external) (internal); E11.319 Type 2 diabetes mellitus with unspecified diabetic retinopathy without macular edema; T36.8X5A Adverse effect of other systemic antibiotics, initial encounter; K31.84 Gastroparesis; W45.8XXD Other foreign body or object entering through skin, subsequent encounter; E66.9 Obesity, unspecified; N18.9 Chronic kidney disease, unspecified; N20.0 Calculus of kidney; M77.32 Calcaneal spur, left foot; K22.4 Dyskinesia of esophagus; I87.8 Other specified disorders of veins; I12.9 Hypertensive chronic kidney disease with stage 1 through stage 4 chronic kidney disease, or unspecified chronic kidney disease; R63.0 Anorexia; B95.61 Methicillin susceptible Staphylococcus aureus infection as the cause of diseases classified elsewhere; S91.332D Puncture wound without foreign body, left foot, subsequent encounter; Z79.4 Long term (current) use of insulin; Z79.2 Long term (current) use of antibiotics; Z79.82 Long term (current) use of aspirin; Z86.718 Personal history of other venous thrombosis and embolism; Z68.38 Body mass index [BMI] 38.0-38.9, adult; Z87.442 Personal history of urinary calculi
CPT/HCPCS: 71045; 71046; 73630; 73700; 73720; 76770; 80048; 80053; 80069; 80202; 81003; 82436; 82570; 82575; 82607; 82728; 82746; 82800; 82948; 83036; 83540; 83605; 83690; 83930; 83935; 84133; 84156; 84300; 84466; 84484; 84550; 85025; 85027; 85046; 85652; 86140; 87040; 87070; 87075; 87077; 87147; 87186; 87205; 87641; 93005; 93971; 99281; 99285; C1752; C1894; J0690; J0696; J1644; J1650; J1756; J2250; J2405; J2543; J3370; J3420; J7030; J7050; S0020

== ENCOUNTER → 2018-03-13 | Outpatient (CLI) | payer OTHER, MEDICARE ==
[~2018-03-13] MED LIST changes: +CEFTRIAXONE2 G1 IV; +CILOSTAZOL100 MG PO; +LASIX40 MG PO; +PANTOPRAZOLE SO40 MG PO
== END | disposition home or self-care (01) ==
LOC: AMB 07:41
PROC: 02PYX3Z Removal of Infusion Device from Great Vessel, External Approach (ICD-10-PCS; principal; 2018-03-13)
DX: Z45.2 Encounter for adjustment and management of vascular access device (principal); I87.8 Other specified disorders of veins